=== PATIENT | male | born 1995 | race Caucasian/White ===

== ENCOUNTER 2019-12-13 14:02 | Emergency (ER) | payer BC ==
[2019-12-13 14:43] VITALS: BP 121/75
--- NOTE | 2019-12-13 15:11 | UC ---
FLU HPI - HPI Summary HPI Summary: 24-year-old male presenting with nasal congestion, sore throat, fevers 4 days. Patient states symptoms slowly improving but is concerned for strep throat or the flu. Denies cough. Denies nausea and vomiting. Taking ibuprofen for symptom relief. - History of Current Complaint Chief Complaint: UCGeneralIllness Stated Complaint: SINUS CONGESTION,SORE THROAT,FEVER Hx Obtained From: Patient Pain Intensity: 6 Pain Scale Used: 0-10 Numeric - Allergy/Home Medications Allergies/Adverse Reactions: Allergies Allergy/AdvReac Type Severity Reaction Status Date / Time No Known Allergies Allergy Verified 12/13/19 14:43 Home Medications: Home Medications NK [No Home Medications Reported] 12/13/19 [History Confirmed 12/13/19] PMH/Surg Hx/FS Hx/Imm Hx - Surgical History Surgical History: None - Social History Alcohol Use: Occasionally Substance Use Type: None Smoking Status (MU): Never Smoked Tobacco Review of Systems All Other Systems Reviewed And Are Negative: Yes Constitutional: Positive: Fever, Fatigue ENT: Positive: Sore Throat, Sinus Congestion Respiratory: Positive: Negative Cardiovascular: Positive: Negative Gastrointestinal: Positive: Negative Musculoskeletal: Positive: Negative Neurological: Positive: Negative Physical Exam - Summary Physical Exam Summary: Vital Signs Reviewed: Yes A+Ox3, no distress Eyes: Conjunctiva Clear ENT: Hearing grossly normal, TM x 2 clear, moist, uvula midline, no exudate, + pharyngeal erythema Neck: Positive: Supple Respiratory: Positive: No respiratory distress, No accessory muscle use + CTA throughout no w/r Cardiovascular: RRR nl s1, s2 no m/r Musculoskeletal Exam: GERARD x 4 without difficulty Neurological: Positive: Alert Psychological: Positive: age appropriate behavior Skin: Positive: no rash, no ecchymosis Vital Signs: Initial Vital Signs Temp 97.7 F 12/13/19 14:39 Pulse 80 12/13/19 14:39 Resp 20 12/13/19 14:39 BP 121/75 12/13/19 14:39 Pulse Ox 100 12/13/19 14:39 Lab Results 12/13/19 12/13/19 Range/Units 15:28 15:30 Influenza A (Rapid) Positive A (Negative) Group A Strep Rapid Negative (Negative) Flu Course/Dx - Course Course Of Treatment: Positive rapid flu. Patient received tylenol for pain relief here. Instructed to continue with symptomatic treatment and follow up with [facility] if symptoms do not improve within 7 days. Patient voiced understanding and agreed with treatment plan. - Differential Dx/Diagnosis Provider Diagnosis: Influenza A Discharge ED - Sign-Out/Discharge Documenting (check all that apply): Patient Departure All imaging exams completed and their final reports reviewed: No Studies - Discharge Plan Condition: Stable Disposition: HOME Patient Education Materials: Influenza (ED) Referrals: [facility] [Outside] Additional Instructions: As discussed, you tested positive for influenza today. You may continue with motrin for fever and pain relief. Get plenty of rest and increase your fluid intake. Follow up with your primary care provider or the [facility] listed below if symptoms do not resolve within 5-7 days. - Billing Disposition and Condition Condition: STABLE Disposition: Home - Attestation Statements Provider Attestation: This patient was not seen by me. I was available for consult. Chart reviewed. CARLOS
[2019-12-13] MEDS ORDERED: Acetaminophen TAB* 325 MG PO ONE (15:22)
[2019-12-13 15:34] LABS: Influenza A Molecular POSITIVE (Negative)
== END 2019-12-13 15:59 | disposition home or self-care (01) ==
LOC: UCEAST 14:02
DX: J10.1 Influenza due to other identified influenza virus with other respiratory manifestations (principal)
CPT/HCPCS: 87651; 99201; A9270-GY; G0463